=== PATIENT | male | born 2005 | race Caucasian/White ===

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

== ENCOUNTER 2023-05-20 23:24 | Emergency (ER) | payer BC, OTHER, MEDICAID ==
[~2023-05-20] VITALS: Ht 162.6 cm; Wt 52.2 kg
[2023-05-20 23:39] VITALS: BP 124/68; PULSE 109; RESP 16; O2SAT 96
== END 2023-05-21 03:09 | disposition home or self-care (01) ==
LOC: ER 23:24
DX: R07.0 Pain in throat (principal); E75.4 Neuronal ceroid lipofuscinosis
CPT/HCPCS: 70360